=== PATIENT | female | born 1995 | race Caucasian/White ===

== ENCOUNTER 2024-06-12 02:50 | Inpatient (IN) ==
[2024-06-12] MEDS ORDERED: Ondansetron 4 mg VIAL 2 MG/ML 2 ml VIAL ONE (02:58)
[2024-06-12] MEDS ORDERED: Morphine PF AMP (0.5MG/ML) 5 MG/10 ML AMP ONE (02:58)
[2024-06-12] MEDS ORDERED: Oxytocin 10 UNITS/ML 1 ML VIAL ONE (02:58)
[2024-06-12] MEDS ORDERED: Metoclopramide 5 MG/ML VIAL (10 mg) ONE (02:58)
[2024-06-12] MEDS ORDERED: Nalbuphine 10 MG/ML 1 ML VIAL IV PRN (03:21)
[2024-06-12] MEDS ORDERED: Prochlorperazine 5 mg/ml 2 ml VIAL (10 mg) IV PRN (03:21)
[2024-06-12] MEDS ORDERED: Lidocaine 1% VIAL 10 MG/ML 30 ML VIAL INJ PRN (03:21)
[2024-06-12] MEDS: Lactated Ringers 1000 ml BAG 1,000 ML IV SCH (03:30)
[2024-06-12 03:35] LABS: Hematocrit 39.8 % (35-45); Hemoglobin 13.5 g/dL (11.5-14.3); Mean Corpuscular Hemoglobin 28.8 pg (27-33); Mean Corpuscular Hgb Conc 33.9 g/dL (31-36); Mean Platelet Volume 8.5 fL (7.5-11.2); Platelet Count 307 10^3/uL (150-450); Red Blood Count 4.69 10^6/uL (3.63-4.92); Red Cell Distribution Width 13.4 % (12-17); White Blood Count 18.4 10^3/uL (3.8-11.8)
[2024-06-12] MEDS: ceFOXitin 2 GM IVPREMIX 2 GM/50 ML BAG ONE (04:02)
[2024-06-12] MEDS ORDERED: Acetaminophen IV 1 GM/100ML 1,000 MG/100 ML BAG IV ONE (04:26)
[2024-06-12] MEDS ORDERED: Ondansetron 4 mg VIAL 2 MG/ML 2 ml VIAL IV PRN (04:42)
[2024-06-12] MEDS ORDERED: Naloxone 0.4 mg VIAL 0.4 mg/ml 1 ml VIAL IV PUSH PRN (04:42)
[2024-06-12] MEDS ORDERED: Metoclopramide 5 MG/ML VIAL (10 mg) IV PRN (04:42)
[2024-06-12] MEDS ORDERED: Acetaminophen IV 1 GM/100ML 1,000 MG/100 ML BAG IV PRN (04:42)
[2024-06-12] MEDS ORDERED: Dibucaine 1% OINT 28.35 GM TUBE PR PRN (05:10)
[2024-06-12] MEDS ORDERED: Glycerin ADULT 2.4 gm SUPP PR PRN (05:10)
[2024-06-12] MEDS ORDERED: Witch Hazel PAD JAR TOPICAL PRN (05:10)
[2024-06-12] MEDS: Oxytocin in LR 20,000 MILLI.UNIT/1,000 ML BAG IV SCH (05:30)
[2024-06-12] MEDS ORDERED: Lactated Ringers 1000 ml BAG 1,000 ML IV SCH (06:00)
[2024-06-12 06:27] LABS: Urine Benzodiazepine Screen None Detected (None Detect); Urine Cannabinoids Screen Presumptive Positive (None Detect); Urine Opiates Screen None Detected (None Detect)
[2024-06-12 06:37] LABS: Urine Appearance Clear; Urine Bilirubin Negative (Negative); Urine Blood Negative (Negative); Urine Color Light-Yellow; Urine Glucose Negative (Negative); Urine Ketones 1+ (Negative); Urine Nitrite Negative (Negative); Urine Protein Negative (Negative); Urine Specific Gravity 1.011 (1.002-1.030); Urine Urobilinogen Negative (Negative)
[2024-06-12] MEDS: Buffered Lidocaine 1% SYRIN 1 ml INTRADERM ONE (11:30)
[2024-06-12] MEDS: Tranexamic Acid 1 GM/100ML BAG 0 MG/0 ML BAG IV ONE (11:30)
[2024-06-12] MEDS: Lactated Ringers 1000 ml BAG 1,000 ML IV ONE (11:35)
[2024-06-12] MEDS: ceFAZolin 2 GM PREMIX 0 GM/0 ML BAG ONE (11:35)
[2024-06-12] MEDS: ceFOXitin 2 GM IVPREMIX 2 GM/50 ML BAG IVPB ONE (11:35)
[2024-06-12 13:36] LABS: RPR Nonreactive (Nonreactive)
[2024-06-12] MEDS: Sodium Citrate/Citric Acid LIQ 15 ML UDC PO ONE (14:20)
[2024-06-13 06:42] LABS: ABS Basophils 0.1 10^3/uL (0.0-0.1); ABS Eosinophils 0.1 10^3/uL (0.0-0.5); ABS Lymphocytes 1.8 10^3/uL (1.0-4.8); ABS Monocytes 0.7 10^3/uL (0.0-0.9); ABS Neutrophils 11.6 10^3/uL (1.5-7.6); Eosinophil % 0.8 %; Hematocrit 33.8 % (35-45); Hemoglobin 11.5 g/dL (11.5-14.3); Lymphocyte % 12.7 %; Mean Corpuscular Volume 85.3 fL (80-97); Mean Platelet Volume 8.3 fL (7.5-11.2); Platelet Count 257 10^3/uL (150-450); Red Blood Count 3.96 10^6/uL (3.63-4.92); Red Cell Distribution Width 13.6 % (12-17); White Blood Count 14.4 10^3/uL (3.8-11.8)
[2024-06-13 09:30] VITALS: BP 125/72
[2024-06-15 15:26] LABS: T.Pallidum TP-PA Negative (Negative)
== END 2024-06-13 16:15 | disposition home or self-care (01) | DRG 540 ==
LOC: MCHOBOUT 02:50 → MCHOB 03:19
PROVIDERS: ADMIT Obstetrics & Gynecology; ATTEND Obstetrics & Gynecology